=== PATIENT | male | born 1950 | race Caucasian/White ===

== ENCOUNTER → 2021-03-24 11:53 | Outpatient (CLI) | payer MEDICARE, SELFPAY ==
--- NOTE | 2021-03-24 12:02 | XR_ITS ---
PROCEDURE: XR FOOT WT BEARING RT 3V CLINICAL INDICATION: fracture evaluation, lis franc injury COMPARISON: No exams were available for comparison FINDINGS: There is widening of the 1st intermetatarsal space with mild lateral subluxation at the base 2nd metatarsal by approximately 4 mm. There may be a nondisplaced fracture at the base of the 4th metatarsal and possible longitudinal fracture at the base of the 3rd metatarsal both seen on the AP view. CT may confirm. The tarsal alignment is maintained. IMPRESSION: Mild lateral displacement of the base of the 2nd metatarsal Questionable nondisplaced fracture base of the 3rd and 4th metatarsals. Dictated by: Eladio Zafar MD 03/24/2021 14:22 Eladio Zafar MD in [place] 03/24/2021 14:22
== END ==
PROVIDERS: PCP Family Medicine; Visit Provider Podiatrist
DX: T14.8XXA Other injury of unspecified body region, initial encounter (principal); S92.334A Nondisplaced fracture of third metatarsal bone, right foot, initial encounter for closed fracture; S92.344A Nondisplaced fracture of fourth metatarsal bone, right foot, initial encounter for closed fracture
CPT/HCPCS: 73630

== ENCOUNTER → 2021-04-13 14:05 | Outpatient (CLI) | payer MEDICARE, SELFPAY ==
[2021-04-13 14:25] LABS: Blood Urea Nitrogen 20 mg/dl (9-20); Estimated Glomerular Filt Rate 74 ml/min (>60); GFR (African American) 90 ML/MIN (>60)
--- NOTE | 2021-04-13 14:51 | MR_ITS ---
PROCEDURE INFORMATION: Exam: MR Right Lower Extremity Other Than Joint Without and With Contrast; Foot Exam date and time: 04/13/2021 2:51 PM Age: 71 years old Clinical indication: Condition or disease; Other: Fraacture; Additional info: Right foot fracture. FX foot [id number] ago and still pain, swelling and bruising. Entire foot pain. 17ml prohance lot: [id number] exp: Jan 2023 bun: 20 cre: 1.0 gfr: 74 prior x-ray 03-24-21 TECHNIQUE: Imaging protocol: MR of the Right lower extremity without and with intravenous contrast. Exam focused on the foot. Contrast material: PROHANCE; Contrast volume: 17 ml; Contrast route: IV; COMPARISON: CR XR FOOT WT BEARING RT 3V 03/24/2021 12:20 PM FINDINGS: Limitations: The large [id number] utilized to image the entire foot and ankle results in proportionally lower anatomic detail. Bones and cartilage: The Lisfranc fracture-dislocation injury of the midfoot has a similar appearance. The first through fifth metatarsal bases are laterally subluxed. The second metatarsal base also demonstrates dorsal subluxation. Fractures involving the intermediate cuneiform, lateral cuneiform, cuboid, and second through fourth proximal metatarsals demonstrate predominantly near anatomic alignment with mild displacement of the fourth metatarsal base fracture. There is either a contusion or a subtle fracture involving the medial cuneiform bone. Joint spaces: The first through fifth tarsometatarsal joints are malaligned. LIGAMENTS: Lisfranc ligament: All 3 bands of the Lisfranc ligament (dorsal, interosseous, and plantar) are torn. TENDONS: Flexor tendons of foot: Unremarkable. No evidence of tear. Tibialis posterior tendon: Trace tenosynovitis involves the tibialis posterior tendon. Peroneal tendons: Trace tenosynovitis involves the peroneal tendon sheath. Extensor tendons of foot: Unremarkable. No evidence of tear. Tibialis anterior tendon: Unremarkable as visualized. Achilles tendon: There is no tear or significant tendinosis involving the Achilles tendon. Tarsal canal (Sinus tarsi): Edema in the sinus tarsi region is proportional to the adjacent soft tissue edema. The cervical ligament appears intact. Tarsal tunnel: Unremarkable. Soft tissues: Severe subcutaneous edema involves the lower leg through foot. The plantar plate of the great toe metatarsophalangeal joint is torn. Plantar fascia: There is no mass or significant fasciitis (fasciopathy) involving the plantar fascia. IMPRESSION: 1. Similar appearance of the Lisfranc fracture-dislocation injury of the midfoot with subluxation of the first through fifth metatarsals, fractures of the intermediate cuneiform, lateral cuneiform, cuboid, and second through fourth proximal metatarsals, and a contusion or subtle fracture involving the medial cuneiform. 2. Tear of the Lisfranc ligament.
== END ==
PROVIDERS: Visit Provider Podiatrist
DX: M79.671 Pain in right foot (principal); R60.0 Localized edema; S92.331A Displaced fracture of third metatarsal bone, right foot, initial encounter for closed fracture; S92.341A Displaced fracture of fourth metatarsal bone, right foot, initial encounter for closed fracture; S93.321A Subluxation of tarsometatarsal joint of right foot, initial encounter
CPT/HCPCS: 36415; 73720; 82565; 84520; A9576

== ENCOUNTER → 2021-05-12 13:24 | Outpatient (CLI) | payer MEDICARE, SELFPAY ==
--- NOTE | 2021-05-12 13:28 | XR_ITS ---
PROCEDURE INFORMATION: Exam: XR Right Foot Complete; Alignment Exam date and time: 05/12/2021 1:28 PM Age: 71 years old Clinical indication: Other: Fracture evaluation TECHNIQUE: Imaging protocol: XR Right foot. Views: 3 or more views. COMPARISON: MR FOOT RT WO/W CON 04/13/2021 3:38 PM FINDINGS: Bones/joints: Healing fracture of the base of the 4th metatarsal present. Question healing fracture of the base of the 3rd metatarsal. There is no evidence of joint malalignment or dislocation. Mild displacement of the base of the 2nd metatarsal is again noted. Soft tissues: Normal. IMPRESSION: 1. Healing fracture of the base of the 4th metatarsal present. 2. Question healing fracture of the base of the 3rd metatarsal. 3. No evidence of acute dislocation. 4. Mild displacement of the base of the 2nd metatarsal is again noted. Findings are similar to the prior study.
== END ==
PROVIDERS: PCP Family Medicine; Visit Provider Podiatrist
DX: S92.901A Unspecified fracture of right foot, initial encounter for closed fracture; S92.331A Displaced fracture of third metatarsal bone, right foot, initial encounter for closed fracture; S92.341A Displaced fracture of fourth metatarsal bone, right foot, initial encounter for closed fracture; S93.321A Subluxation of tarsometatarsal joint of right foot, initial encounter
CPT/HCPCS: 73630

== ENCOUNTER → 2021-06-23 13:46 | Outpatient (CLI) | payer MEDICARE, SELFPAY ==
--- NOTE | 2021-06-23 13:51 | XR_ITS ---
PROCEDURE: XR FOOT WT BEARING RT 3V CLINICAL INDICATION: fracture evaluation COMPARISON: CR XR FOOT WT BEARING RT 3V from 03/24/2021 MR MR FOOT RT WO/W CON from 04/13/2021 CR XR FOOT WT BEARING RT 3V from 05/12/2021 FINDINGS: There is a healing fracture at the proximal aspect the 4th metatarsal. Fracture line appears somewhat less apparent. There is mild lateral displacement at the base the 2nd metatarsal suggesting a Lisfranc injury. There is also widening the mid and lateral cuneiform joint space. These findings are not significantly changed. Minimal lateral displacement at the base of the 3rd metatarsal. Some fractures noted on the previous MRI are below resolution on the plain film. IMPRESSION: Healing fracture at the base of the 4th metatarsal with persistent lateral subluxation of the 2nd 3rd and 4th metatarsals and prominence of the joint space between the intermediate and lateral cuneiform. Findings are consistent with Lisfranc injury Dictated by: Eladio Zafar MD 06/23/2021 16:14 Eladio Zafar MD in [place] 06/23/2021 16:14
== END ==
PROVIDERS: PCP Family Medicine; Visit Provider Orthopaedic Surgery
DX: S92.333A Displaced fracture of third metatarsal bone, unspecified foot, initial encounter for closed fracture; S92.343A Displaced fracture of fourth metatarsal bone, unspecified foot, initial encounter for closed fracture; S92.901A Unspecified fracture of right foot, initial encounter for closed fracture; S93.326A Dislocation of tarsometatarsal joint of unspecified foot, initial encounter
CPT/HCPCS: 73630

== ENCOUNTER → 2021-07-28 14:00 | Outpatient (CLI) | payer MEDICARE, SELFPAY ==
--- NOTE | 2021-07-28 14:12 | XR_ITS ---
FINAL REPORT CLINICAL HISTORY: fracture evaluation, weightbearing views for Dr. Andrew. COMPARISON: June 23, 2021 FINDINGS: RIGHT FOOT Three views of the right foot demonstrate a probable subacute fracture of the proximal 4th metatarsal appearing stable. There are mild degenerative changes. The soft tissues are unremarkable. IMPRESSION: Probable subacute fracture of the 4th metatarsal, stable. Reviewed, Interpreted and Dictated by Damien Diana III, MD Transcribed by Celeste Oliveira Authenticated by Damien Diana III, MD on 07/28/2021 03:34:12 PM [facility]
== END ==
PROVIDERS: PCP Family Medicine; Visit Provider Podiatrist
DX: S92.331A Displaced fracture of third metatarsal bone, right foot, initial encounter for closed fracture; S92.341A Displaced fracture of fourth metatarsal bone, right foot, initial encounter for closed fracture; S93.321A Subluxation of tarsometatarsal joint of right foot, initial encounter
CPT/HCPCS: 73630

== ENCOUNTER → 2021-08-27 15:11 | Outpatient (CLI) | payer MEDICARE, SELFPAY ==
--- NOTE | 2021-08-27 15:34 | CT_ITS ---
FINAL REPORT TECHNIQUE: Thin section axial CT images with coronal and sagittal reformats were performed. This study was performed with techniques to keep radiation doses as low as reasonably achievable (ALARA). Individualized dose reduction techniques using automated exposure control or adjustment of mA and/or kV according to the patient''s size were employed. CLINICAL HISTORY: pain FINDINGS: There are fractures of the proximal fourth and proximal second metatarsals, favor subacute. There is irregularity of the second through fifth tarsometatarsal joints with multiple small calcifications in these regions which could all be due to posttraumatic change but early changes of neuropathic osteoarthropathy could have a similar appearance. There is dorsal foot subcutaneous edema. IMPRESSION: Favor subacute fractures of the proximal second and fourth metatarsals. Irregularity of the second through fifth tarsometatarsal joints as detailed above, could represent posttraumatic change but early changes of neuropathic osteoarthropathy A similar appearance. Reviewed, Interpreted and Dictated by Damien Diana III, MD Transcribed by Gisel Stanford Authenticated by Damien Diana III, MD on 08/27/2021 04:28:00 PM [facility]
== END ==
PROVIDERS: PCP Family Medicine; Visit Provider Podiatrist
DX: S93.321A Subluxation of tarsometatarsal joint of right foot, initial encounter (principal)
CPT/HCPCS: 73700